=== PATIENT | female | born 1960 | race Caucasian/White ===

== ENCOUNTER 2016-11-07 17:16 | Emergency (ER) | payer OTHER, BC ==
[~2016-11-07] VITALS: Ht 154.3 cm; Wt 76.4 kg
[~2016-11-07 17:16] MED LIST: LORT5TAB PO; SIMV5TAB32 PO; SINUS MEDS; Z.0.BCPILL PO
[2016-11-07 17:38] VITALS: BP 167/94; PULSE 96; RESP 16; TEMP 98.3; O2SAT 98
[2016-11-07] MEDS ORDERED: CHOLESTEROL MED (18:04)
[2016-11-07] MEDS ORDERED: NASA5.2S2 EACH NARE (18:04)
[2016-11-07] MEDS ORDERED: ASPI-156 PO (18:04)
[2016-11-07] MEDS ORDERED: METO25TA3 PO (18:04)
[2016-11-07] MEDS ORDERED: BIRTH CONTROL PO (18:04)
[2016-11-07] MEDS ORDERED: [UNRECOGNIZED DRUG - REMARK] (18:04)
[2016-11-07] MEDS ORDERED: PRAV80TA2 PO (18:07)
[2016-11-07] MEDS ORDERED: FENO145T2 PO (18:07)
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
[2016-11-07] MEDS ORDERED: NAPR500T PO (19:48)
[2016-11-07] MEDS ORDERED: CYCL1TAB29 PO (19:48)
== END 2016-11-07 20:13 | disposition home or self-care (01) ==
LOC: PHEFT 17:16
DX: M54.2 Cervicalgia (principal); I10 Essential (primary) hypertension; E78.00 Pure hypercholesterolemia, unspecified; V43.52XA Car driver injured in collision with other type car in traffic accident, initial encounter; Y99.8 Other external cause status
CPT/HCPCS: 72125